=== PATIENT | female | born 1995 | race Caucasian/White ===

== ENCOUNTER 2019-05-05 16:55 | Emergency (ER) | payer MEDICAID ==
--- NOTE | 2019-05-05 17:28 | ER Document Report ---
ED Medical Screen (RME) - General Chief Complaint: Abdominal Pain Stated Complaint: ABDOMINAL PAIN Time Seen by Provider: 05/05/19 17:24 Primary Care Provider: SEE CRUMP MD [Primary Care Provider] - Follow up as needed Mode of Arrival: Ambulatory Information source: Patient Notes: 23-year-old female presented to ED for complaint of pelvic pain and vaginal bleeding. She states that her last menstrual cycle started on March 30. She states Friday she realized that she was late and so she took a test. She states it was positive. Today she started with some pelvic cramping and vaginal bleeding about 2 PM. She states she is still on her same pantiliner since 2 PM but started getting a little heavier. She states she came to the emergency room to find out what was going on because she is bleeding. She is 1 para 0. She has no past medical or surgical history. She does not smoke occasionally drinks and does not do drugs. 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 I have greeted and performed a rapid initial assessment of this patient. A comprehensive ED assessment and evaluation of the patient, analysis of test results and completion of medical decision making process will be conducted by an additional ED providers. - Related Data Allergies/Adverse Reactions: No Known Allergies Allergy (Verified 05/05/19 17:21) Past Medical History - Immunizations Immunizations up to date: Yes Hx Diphtheria, Pertussis, Tetanus Vaccination: Yes Physical Exam - Vital signs Vitals: Temp Pulse Resp BP Pulse Ox 98.1 F 94 16 142/86 H 100 05/05/19 17:01 05/05/19 17:01 05/05/19 17:01 05/05/19 17:01 05/05/19 17:01 Course - Vital Signs Vital signs: Temp Pulse Resp BP Pulse Ox 98.1 F 94 16 142/86 H 100 05/05/19 17:01 05/05/19 17:01 05/05/19 17:01 05/05/19 17:01 05/05/19 17:01 Doctor's Discharge - Discharge Referrals: SEE CRUMP MD [Primary Care Provider] - Follow up as needed
[2019-05-05 18:53] LABS: ABSOLUTE BASOPHILS # (AUTO) 0.1 10^3/uL (0.0-0.2); ABSOLUTE EOSINOPHILS # (AUTO) 0.1 10^3/uL (0.0-0.6); ABSOLUTE LYMPHOCYTES (AUTO) 2.4 10^3/uL (0.5-4.7); ABSOLUTE MONOCYTES (AUTO) 0.6 10^3/uL (0.1-1.4); ABSOLUTE NEUT (AUTO) 7.2 10^3/uL (1.7-8.2); BASOPHILS % (AUTO) 0.6 % (0-2); EOSINOPHILS % (AUTO) 1.2 % (0-6); HEMATOCRIT 40.5 % (36.0-47.0); HEMOGLOBIN 13.8 g/dL (12.0-15.5); LYMPHOCYTES % (AUTO) 23.5 % (13-45); MEAN CORPUSCULAR HEMOGLOBIN 31.4 pg (27.0-33.4); MEAN CORPUSCULAR HGB CONC 34.1 g/dL (32.0-36.0); MEAN CORPUSCULAR VOLUME 92 fl (80-97); MONOCYTES % (AUTO) 5.9 % (3-13); PLATELET COUNT 315 10^3/uL (150-450); RED BLOOD COUNT 4.41 10^6/uL (3.72-5.28); RED CELL DISTRIBUTION WIDTH 12.7 % (11.5-14.0); SEGMENTED NEUTROPHILS % (AUTO) 68.8 % (42-78); TOTAL CELLS COUNTED % (AUTO) 100 %; WHITE BLOOD COUNT 10.4 10^3/uL (4.0-10.5)
[2019-05-05 19:00] LABS: APPEARANCE,URINE SLIGHTLY-CLOUDY; BILIRUBIN,URINE NEGATIVE (NEGATIVE); COLOR,URINE YELLOW; GLUCOSE, URINE NEGATIVE (NEGATIVE); KETONES,URINE NEGATIVE (NEGATIVE); LEUKOCYTE ESTERASE,URINE NEGATIVE (NEGATIVE); NITRITE,URINE NEGATIVE (NEGATIVE); PROTEIN,URINE NEGATIVE (NEGATIVE); URINE SPECIFIC GRAVITY 1.013; UROBILINOGEN,URINE NEGATIVE mg/dL (<2.0)
[2019-05-05 19:14] LABS: ALBUMIN 4.5 g/dL (3.5-5.0); ALKALINE PHOSPHATASE 49 U/L (38-126); ANION GAP 8 (5-19); ASPARTATE AMINO TRANSFERASE 20 U/L (14-36); BILIRUBIN,DIRECT 0.1 mg/dL (0.0-0.4); BILIRUBIN,TOTAL 0.6 mg/dL (0.2-1.3); BLOOD UREA NITROGEN 10 mg/dL (7-20); CALCIUM 9.5 mg/dL (8.4-10.2); CARBON DIOXIDE 28 mmol/L (22-30); CHLORIDE 104 mmol/L (98-107); GLUCOSE 81 mg/dL (75-110); POTASSIUM 4.6 mmol/L (3.6-5.0); TOTAL PROTEIN 7.8 g/dL (6.3-8.2)
--- NOTE | 2019-05-05 19:20 | ER Document Report ---
ED GI/ - General Chief Complaint: Abdominal Pain Stated Complaint: ABDOMINAL PAIN Time Seen by Provider: 05/05/19 17:24 Primary Care Provider: SEE CRUMP MD [EMERITUS] - Follow up as needed Mode of Arrival: Ambulatory Notes: Patient is a 23-year-old G1, P0 who presents to the emergency department with a chief complaint of vaginal bleeding. Patient reports her last menstrual cycle was March 30. Patient reports she did have some vaginal spotting this past Friday. Patient reports that did improve and then returned earlier today. Patient reports it was a little bit heavier which did bring her concern. Patient states that it is not as heavy as a menstrual cycle. Patient reports she did take 3 home test which were positive. Patient denies blood clots. Patient denies urinary symptoms. Patient denies nausea, vomiting or diarrhea. Patient reports she is having some lower abdominal cramping. Patient denies any fever. Patient does not have an MANAGER RN CASE. TRAVEL OUTSIDE OF THE [place] IN LAST 30 DAYS: No - Related Data Allergies/Adverse Reactions: No Known Allergies Allergy (Verified 05/05/19 17:21) Past Medical History - General Information source: Patient - Social History Smoking Status: Never Smoker Chew tobacco use (# tins/day): No Frequency of alcohol use: Occasional Drug Abuse: None Lives with: Spouse/Significant other Family History: None Patient has suicidal ideation: No Patient has homicidal ideation: No - Past Medical History Cardiac Medical History: Reports: None Pulmonary Medical History: Reports: None EENT Medical History: Reports: None Neurological Medical History: Reports: None Endocrine Medical History: Reports: None Renal/ Medical History: Reports: None Malignancy Medical History: Reports: None GI Medical History: Reports: None Musculoskeletal Medical History: Reports None Skin Medical History: Reports None Psychiatric Medical History: Reports: None Traumatic Medical History: Reports: None Infectious Medical History: Reports: None Surgical Hx: Negative - Immunizations Immunizations up to date: Yes Hx Diphtheria, Pertussis, Tetanus Vaccination: Yes Review of Systems - Review of Systems Constitutional: No symptoms reported EENT: No symptoms reported Cardiovascular: No symptoms reported Respiratory: No symptoms reported Gastrointestinal: See HPI Genitourinary: No symptoms reported Female Genitourinary: See HPI Musculoskeletal: No symptoms reported Skin: No symptoms reported Hematologic/Lymphatic: No symptoms reported Neurological/Psychological: No symptoms reported Physical Exam - Vital signs Vitals: Temp Pulse Resp BP Pulse Ox 98.1 F 94 16 142/86 H 100 05/05/19 17:01 05/05/19 17:01 05/05/19 17:01 05/05/19 17:01 05/05/19 17:01 Interpretation: Normal - Notes Notes: GENERAL: Well-appearing, well-nourished and in no acute distress. HEAD: Atraumatic, normocephalic. EYES: Pupils equal round and reactive to light, extraocular movements intact, sclera anicteric, conjunctiva are normal. ENT: Nares patent, oropharynx clear without exudates. Moist mucous membranes. NECK: Normal range of motion, supple without lymphadenopathy or JVD. LUNGS: Breath sounds clear to auscultation bilaterally and equal. No wheezes rales or rhonchi. HEART: Regular rate and rhythm without murmurs, rubs or gallops. ABDOMEN: Soft, nontender, normoactive bowel sounds. No guarding, no rebound. No masses appreciated. BACK: No cervical, thoracic, lumbar midline tenderness. No saddle anesthesia, normal distal neurovascular exam. GENITOURINARY: Deferred. EXTREMITIES: Normal range of motion, no pitting or edema. No clubbing or cyanosis. NEUROLOGICAL: Cranial nerves II through XII grossly intact. Normal speech, normal gait. PSYCH: Normal mood, normal affect. SKIN: Warm, Dry, normal turgor, no rashes or lesions noted. Course - Re-evaluation Re-evalutation: 05/05/19 20:41 Patient's beta quant is 10.43. I did inform the patient that her test is positive but there is no intrauterine . I did inform her that typically with a blood level this low nothing would show up in the uterus. I did inform her I would like her to follow-up in the outpatient lab in 48 to 72 hours to have a repeat quant drawn. Patient given strict return precautions. Patient was given a lab slip. - Vital Signs Vital signs: Temp Pulse Resp BP Pulse Ox 98.1 F 94 16 142/86 H 100 05/05/19 17:01 05/05/19 17:01 05/05/19 17:01 05/05/19 17:01 05/05/19 17:01 - Laboratory Result Diagrams: 05/05/19 18:35 05/05/19 18:35 Laboratory results interpreted by me: 05/05/19 05/05/19 18:35 18:35 Beta HCG, Quant 10.43 H Urine Blood LARGE H 05/05/19 20:15 Laboratory 05/05/19 05/05/19 05/05/19 18:35 18:35 18:35 WBC 10.4 RBC 4.41 Hgb 13.8 Hct 40.5 MCV 92 MCH 31.4 MCHC 34.1 RDW 12.7 Plt Count 315 Lymph % (Auto) 23.5 Labette % (Auto) 5.9 Eos % (Auto) 1.2 Baso % (Auto) 0.6 Absolute Neuts (auto) 7.2 Absolute Lymphs (auto) 2.4 Absolute Monos (auto) 0.6 Absolute Eos (auto) 0.1 Absolute Basos (auto) 0.1 Seg Neutrophils % 68.8 Sodium 140.2 Potassium 4.6 Chloride 104 Carbon Dioxide 28 Anion Gap 8 BUN 10 Creatinine 0.65 Est GFR ( Amer) > 60 Est GFR (MDRD) Non-Af > 60 Glucose 81 Calcium 9.5 Total Bilirubin 0.6 Direct Bilirubin 0.1 Neonat Total Bilirubin Not Reportable Neonat Direct Bilirubin Not Reportable Neonat Indirect Bili Not Reportable AST 20 ALT 12 Alkaline Phosphatase 49 Total Protein 7.8 Albumin 4.5 Beta HCG, Quant 10.43 H Total Beta HCG POSITIVE Urine Color Urine Appearance Urine pH Ur Specific [place] Urine Protein Urine Glucose (UA) Urine Ketones Urine Blood Urine Nitrite Urine Bilirubin Urine Urobilinogen Ur Leukocyte Esterase Urine WBC (Auto) Urine RBC (Auto) U Hyaline Cast (Auto) Squamous Epi Cells Auto Urine Mucus (Auto) Urine Ascorbic Acid Blood Type A POSITIVE Rhogam Indicated RHOGAM NOT INDICATED 05/05/19 18:35 WBC RBC Hgb Hct MCV MCH MCHC RDW Plt Count Lymph % (Auto) [place] % (Auto) Eos % (Auto) Baso % (Auto) Absolute Neuts (auto) Absolute Lymphs (auto) Absolute Monos (auto) Absolute Eos (auto) Absolute Basos (auto) Seg Neutrophils % Sodium Potassium Chloride Carbon Dioxide Anion Gap BUN Creatinine Est GFR ( Amer) Est GFR (MDRD) Non-Af Glucose Calcium Total Bilirubin Direct Bilirubin Neonat Total Bilirubin Neonat Direct Bilirubin Neonat Indirect Bili AST ALT Alkaline Phosphatase Total Protein Albumin Beta HCG, Quant Total Beta HCG Urine Color YELLOW Urine Appearance SLIGHTLY-CLOUDY Urine pH 6.0 Ur Specific [place] 1.013 Urine Protein NEGATIVE Urine Glucose (UA) NEGATIVE Urine Ketones NEGATIVE Urine Blood LARGE H Urine Nitrite NEGATIVE Urine Bilirubin NEGATIVE Urine Urobilinogen NEGATIVE Ur Leukocyte Esterase NEGATIVE Urine WBC (Auto) 1 Urine RBC (Auto) 114 U Hyaline Cast (Auto) 1 Squamous Epi Cells Auto 1 Urine Mucus (Auto) RARE Urine Ascorbic Acid NEGATIVE Blood Type Rhogam Indicated - Diagnostic Test Radiology reviewed: Reports reviewed Radiology results interpreted by me: 05/05/19 20:15 Obstetrics Ultrasound 05/05/19 17:24 IMPRESSION: There is no intrauterine gestation at this time. Follow-up as clinically indicated. Discharge - Discharge Clinical Impression: Threatened miscarriage in early , Vaginal bleeding Condition: Stable Disposition: HOME, SELF-CARE Additional Instructions: Today you are seen the emergency department for vaginal bleeding. Your lab work does show that you but that this is very early. Your hCG quant level was 10.43 You do need to return in 48 to 72 hours to have your blood drawn. You can return to the front of the hospital; and go to the lab to have this drawn. I have attached a telephone number [phone] or [phone] that you can call if you hours after your blood test to get the results. At this point you are . Please start a vitamin. Do not take ibuprofen. If you are in pain only take Tylenol. Do not smoke or drink alcohol. Please return to the emergency department if you develop severe abdominal pain, severe vaginal bleeding, fever or any worsening signs or symptoms. : You are . care is best started as early in as possible. If you're unsure about continuing this , you should discuss this with your physician or with portable saw[facility] at [facility]. You should take only medications approved by your physician. Acetaminophen can safely be taken for minor pains. As a rule, medication for chronic conditions such as asthma or seizures can safely be continued. You should discuss with the physician every medicine you take. Any regular exercise program can be continued. Talk to your physician, however, before engaging in competitive or demanding sports. Alcohol, smoking, and "street drugs" are dangerous to your baby. Cocaine is especially dangerous. Don't use any illicit drugs! BLEEDING DURING EARLY : You have been evaluated for passing blood while . While we take this symptom very seriously, most women with your degree of bleeding will go on to have a perfectly normal baby. At this time, there is no indication that a miscarriage will occur. (A miscarriage occurs when the fetus is abnormal. There is no medicine or treatment to prevent it.) A more serious cause of bleeding is tubal (or ectopic) . An ultrasound usually can show whether the is in the uterus or in the tube. Sometimes in early , no fetus is seen. In this case, careful follow-up, including repeat blood tests and repeat ultrasound, is necessary. Do not douche or have sex for at least a week, or until OK'd by the doctor. Don't use tampons. Call the doctor or return for re-examination if there is an increase in bleeding or cramping, extreme weakness, fainting, new abdominal pain, fever, or passage of tissue. THREATENED MISCARRIAGE: You have been evaluated for a possible miscarriage. At this time, there is no indication that a miscarriage will occur. Most women with your symptoms wi ll go on to have a perfectly normal baby. However, careful observation will be necessary. A miscarriage occurs when the fetus is abnormal. There is no medicine or treatment for it. You should rest in bed until the symptoms have resolved. Do not douche or have sex for at least a week, or until OK'd by the doctor. Call the doctor or return for re-examination if there is an increase in bleeding or cramping, or passage of tissue. REPEAT BLOOD TEST: At this time, it is uncertain if you have a viable . During the first three months of , the hormone produced from the placenta will steadily rise, usually doubling in value every 2 - 3 days. In or kirsty to determine if your is viable and likely be succesful, a repeat of this blood test for the hormone is recommended in 2 - 3 days. An order for this test to be done as an outpatient is being provided. After you have this repeat test done, call your doctor or call us for the results. If the value of the test is increasing as would be expected in a normal , then your is likely to be ok. However, if the value of the test is declining, it will suggest something has happened with your and it will not likely be a successful . FOLLOW-UP CARE: If you have been referred to a physician for follow-up care, call the physicians office for an appointment as you were instructed or within the next two days. If you experience worsening or a significant change in your symptoms (very heavy bleeding with large clots of blood, passage of tissue, more severe abdominal / pelvic pain or cramping, feeling faint or severe weakness, fever, etc.), notify the physician immediately or return to the Emergency Department at any time for re-evaluation. OBSTETRIC-GYNECOLOGIC (OB-LABORER [employer] [employer]) PHYSICIANS IN [place]: [facility] [address], [place] [phone] [facility] [address], [place] [phone] For active duty and dependents diagnosed with a threatened or miscarriage, you should follow up in the following manner: Standard patients who have a local civilian provider should follow up with that provider. Patients of the Family Practice Clinic should call your Team Nurse at 8:00 am the following morning for further instructions. If you are neither a Standard patient nor a patient of the Family Practice Clinic, you should follow up at the [facility] ([facility]). Patients already enrolled in the [facility] OB Clinic, Prime patients not assigned to the Family Practice Clinic, and Active Duty patients not assigned to Family Practice Clinic should report to the [facility] Lab at 8:00 am the next mornin g that the [facility] OB Clinic is open and then you will be seen in the OB Clinic at 11:00 am. Forms: Follow-Up Laboratory Testing Referrals: SEE CRUMP MD [EMERITUS] - Follow up as needed
--- NOTE | 2019-05-05 19:52 | RADIOLOGY REPORT (SQ) ---
EXAM DESCRIPTION: U/S OB TRANSVAGINAL W/O DOP COMPLETED DATE/TIME: 05/05/2019 7:38 pm REASON FOR STUDY: Early with vaginal bleeding and pain COMPARISON: None. TECHNIQUE: Transvaginal static and realtime grayscale images acquired of the pelvis. Additional elise cted spectral and color Doppler images recorded. All images stored on PACs. bHCG: Not available. CLINICAL DATES: LMP 03/30/2019. 5 weeks 1 day. LIMITATIONS: None. FINDINGS: There is no intrauterine gestation at this time. UTERUS: No masses. No anomalies. CERVICAL LENGTH: 1.4 cm. Closed. RIGHT ADNEXA: Normal ovary with normal vascular flow. 2.1 x 1.7 x 2.6 cm. No adnexal free fluid. No adnexal masses. LEFT ADNEXA: Normal ovary with normal vascular flow. 1.9 x 2.6 x 3 cm. No adnexal free fluid. No adnexal masses. FREE FLUID: None. OTHER: No other significant finding. IMPRESSION: There is no intrauterine gestation at this time. Follow-up as clinically indicated. TECHNICAL DOCUMENTATION: JOB ID: [id number] [employer]- All Rights Reserved rev-12/19 Reading location - IP/workstation name: [email or web address]
[2019-05-05 21:03] VITALS: BP 124/69
== END 2019-05-05 21:03 | disposition home or self-care (01) ==
LOC: ER 16:55
DX: O20.0 Threatened abortion (principal); O26.891 Other specified pregnancy related conditions, first trimester; R10.30 Lower abdominal pain, unspecified; Z3A.01 Less than 8 weeks gestation of pregnancy
CPT/HCPCS: 36415; 76817; 80053; 81001; 84702; 85025; 86900; 86901; 99284

== ENCOUNTER → 2019-05-07 | Outpatient (CLI) | payer SELFPAY | LOC: OD 12:38 | PROVIDERS: ATTEND Nurse Practitioner Family | DX: O20.0 Threatened abortion (principal) | CPT/HCPCS: 36415; 84702 ==

== ENCOUNTER 2020-04-28 08:28 | Outpatient (CLI) | payer OTHER ==
[2020-04-28 09:19] LABS: APPEARANCE,URINE CLEAR; BILIRUBIN,URINE NEGATIVE (NEGATIVE); COLOR,URINE STRAW; GLUCOSE, URINE NEGATIVE (NEGATIVE); KETONES,URINE NEGATIVE (NEGATIVE); LEUKOCYTE ESTERASE,URINE MODERATE (NEGATIVE); NITRITE,URINE NEGATIVE (NEGATIVE); PROTEIN,URINE NEGATIVE (NEGATIVE); URINE SPECIFIC GRAVITY 1.008; UROBILINOGEN,URINE NEGATIVE mg/dL (<2.0)
--- NOTE | 2020-04-28 09:31 | Non Stress Test Report ---
Non Stress Test Datetime Report Generated by CPN: 04/28/2020 09:30 DEMOGRAPHIC EGA NST: 39.0 INDICATION Indication for Study (NST) Other: LC VITAL SIGNS Temperature - NST: 98.4 Pulse - NST: 77 RESP - NST: 18 NBPSYS NST: 122 NBPDIA NST: 80 MONITORING Monitor Explained: Monitor Explained; Test Explained; Patient Verbalized Understanding Time on Monitor: 04/28/2020 08:42 Time off Monitor: 04/28/2020 09:29 NST Duration: 47 NST INTERVENTIONS NST Interventions: PO Hydration; Reposition Patient Physician Notified NST: A Deleon CNM BABY A: [id number] BABY A Movement : Present Contraction Frequency : 2-4 FHR Baseline : 120 Accelerations : 15X15 Decelerations : None Variability : Moderate 6-25bpm NST Review: Meets Criteria for Reactive NST NST Review and Verified By : Aretha NST Results: Reactive NST REPORT Report Trigger: Send Report
[2020-04-28 09:36] LABS: URINE AMPHETAMINES SCREEN NEGATIVE; URINE BARBITURATES SCREEN NEGATIVE; URINE BENZODIAZEPINES SCREEN NEGATIVE; URINE COCAINE SCREEN NEGATIVE; URINE MARIJUANA (THC) SCREEN NEGATIVE; URINE METHADONE SCREEN NEGATIVE; URINE PHENCYCLIDINE SCREEN NEGATIVE
== END 2020-04-28 09:39 | disposition home or self-care (01) ==
LOC: LC 08:28
PROVIDERS: ATTEND Obstetrics & Gynecology Gynecology
DX: O47.1 False labor at or after 37 completed weeks of gestation (principal); Z3A.39 39 weeks gestation of pregnancy
CPT/HCPCS: 59025; 80307; 81005

== ENCOUNTER 2020-05-10 00:31 | Inpatient (IN) | payer OTHER ==
[2020-05-10] MEDS ORDERED: RINGERS SOLUTION,LACTATED 1,000 ML IV PRN (00:57)
[2020-05-10] MEDS ORDERED: OXYTOCIN 10 UNIT/ML VIAL ONE (01:14)
[2020-05-10] MEDS ORDERED: PENICILLIN G-K 5 MILLION UNIT VIAL ONE ×2 (01:14→05:38)
[2020-05-10] MEDS ORDERED: LIDOCAINE 1% INJ-PF (10 MG/ML) 30 ML SDV ONE (01:14)
[2020-05-10] MEDS ORDERED: MISOPROSTOL 0.2 MG TABLET ONE (01:14)
[2020-05-10] MEDS ORDERED: OXYTOCIN/0.9 % SODIUM CHLORIDE 30 UNIT/500 ML RTUINJ ONE (01:14)
[2020-05-10 01:27] LABS: APPEARANCE,URINE CLOUDY; BILIRUBIN,URINE NEGATIVE (NEGATIVE); COLOR,URINE YELLOW; GLUCOSE, URINE NEGATIVE (NEGATIVE); KETONES,URINE NEGATIVE (NEGATIVE); LEUKOCYTE ESTERASE,URINE LARGE (NEGATIVE); NITRITE,URINE NEGATIVE (NEGATIVE); PROTEIN,URINE 30 mg/dL (NEGATIVE); URINE SPECIFIC GRAVITY 1.009; UROBILINOGEN,URINE NEGATIVE mg/dL (<2.0)
[2020-05-10 01:27] LABS: ABSOLUTE EOSINOPHILS # (AUTO) 0.1 10^3/uL (0.0-0.6); ABSOLUTE LYMPHOCYTES (AUTO) 2.2 10^3/uL (0.5-4.7); ABSOLUTE MONOCYTES (AUTO) 0.6 10^3/uL (0.1-1.4); ABSOLUTE NEUT (AUTO) 6.7 10^3/uL (1.7-8.2); BASOPHILS % (AUTO) 0.3 % (0-2); EOSINOPHILS % (AUTO) 0.7 % (0-6); HEMATOCRIT 31.4 % (36.0-47.0); LYMPHOCYTES % (AUTO) 22.8 % (13-45); MEAN CORPUSCULAR VOLUME 86 fl (80-97); MONOCYTES % (AUTO) 6.2 % (3-13); PLATELET COUNT 237 10^3/uL (150-450); RED BLOOD COUNT 3.66 10^6/uL (3.72-5.28); RED CELL DISTRIBUTION WIDTH 13.6 % (11.5-14.0); TOTAL CELLS COUNTED % (AUTO) 100 %; WHITE BLOOD COUNT 9.5 10^3/uL (4.0-10.5)
[2020-05-10] MEDS ORDERED: RINGERS SOLUTION,LACTATED 1,000 ML IV ONE (01:30)
[2020-05-10] MEDS ORDERED: PENICILLIN G POTASSIUM 5,000,000 UNIT in DEXTROSE 5%-WATER 100 ML IV ONE (02:00)
[2020-05-10 02:09] LABS: URINE AMPHETAMINES SCREEN NEGATIVE; URINE BARBITURATES SCREEN NEGATIVE; URINE BENZODIAZEPINES SCREEN NEGATIVE; URINE COCAINE SCREEN NEGATIVE; URINE MARIJUANA (THC) SCREEN NEGATIVE; URINE METHADONE SCREEN NEGATIVE; URINE PHENCYCLIDINE SCREEN NEGATIVE
[2020-05-10] MEDS ORDERED: OXYTOCIN/0.9 % SODIUM CHLORIDE 30 UNIT/500 ML RTUINJ IV PRN ×2 (04:36→11:29)
[2020-05-10] MEDS ORDERED: PROMETHAZINE HCL INJ 25 MG/1 ML VIAL IV ONE (04:37)
[2020-05-10] MEDS ORDERED: NALBUPHINE HCL INJ 10 MG/1 ML AMPULE INJ ONE (04:37)
[2020-05-10] MEDS ORDERED: NALBUPHINE HCL INJ 10 MG/1 ML AMPULE ONE (04:39)
[2020-05-10] MEDS ORDERED: PROMETHAZINE HCL INJ 25 MG/1 ML VIAL ONE (04:39)
[2020-05-10] MEDS: PENICILLIN G POTASSIUM 2,500,000 UNIT in DEXTROSE 5%-WATER 50 ML IV SCH ×2 (05:44→11:49)
[2020-05-10] MEDS ORDERED: FENTANYL/BUPIVACAINE/NS/PF 300 MCG/150 ML RTUINJ EPI ONE (06:47)
[2020-05-10] MEDS ORDERED: ROPIVACAINE HCL 0.2% INJ/PF (2 MG/ML) 20 ML SDV ONE (06:47)
[2020-05-10] MEDS ORDERED: EPHEDRINE SULFATE INJ 50 MG/1 ML AMPULE ONE (06:47)
--- NOTE | 2020-05-10 07:29 | Admission Physical ---
Datetime Report Generated by CPN: 05/10/2020 07:29 CURRENT ADMISSION Chief Complaint: Uterine Contractions Indication for Induction: Not Applicable Admit Impression : Term, Intrauterine Admit Plan: Admit to Unit; Initiate Labor Protocol ALLERGIES Medication Allergies: No Medication Allergies: No Known Allergies (04/28/2020) Latex: No Latex Allergies OBSTETRICAL HISTORY EDC: 05/05/2020 00:00 : 2 Para: 0 Term: 0 : 0 SAB: 0 IAB: 1 Ectopic: 0 Livin Cesareans: 0 VBACs: 0 Multiple Births: 0 Gestational Diabetes: No Rh Sensitization: No Incompetent Cervix: No JOSIAH: No Infertility: No ART Treatment: No Uterine Anomaly: No IUGR: No Hx Previous C/S: No Macrosomia: No Hx Loss/Stillborn: No PIH: No Hx : No Placenta Previa/Abruption: No Depression/PP Depression: No PTL/PROM: No Post Hemorrhage: No Current Procedures: Ultrasound Obstetrical History Comments: SAB G2- Current SEE RECORDS Alcohol: No Marijuana : No Cocaine: No Other Illicit Drugs: No Cigarettes: Never Smoker. [id number] MEDICAL HISTORY Diabetes: No Blood Transfusion: No Pulmonary Disease (Asthma, TB): No Breast Disease: No Hypertension: No Ct Scan Special Procedures Technologist Surgery: No Heart Disease: No Hosp/Surgery: No Autoimmune Disorder: No Anesthetic Complications: No Kidney Disease: No Abnormal Pap Smear: No Neuro/Epilepsy: No Psychiatric Disorders: No Other Medical Diseases: No Hepatitis/Liver Disease: No Significant Family History: No Varicosities/Phlebitis: No Trauma/Violence : No Thyroid Dysfunction: No Medical History Comments: Asthma as a child INFECTIOUS HISTORY Gonorrhea: No Genital Herpes: No Chlamydia: No Tuberculosis: No Syphilis: No Hepatitis: No HIV/AIDS Exposure: No Rash or Viral Illness: No HPV: No PHYSICAL EXAM General: Normal HEENT: Normal Neurologic: Normal Thyroid: Normal Heart: Normal Lungs: Normal Breast: Deferred Back: Normal Abdomen: Normal Genitourinary Exam: Normal Extremities: Normal DTRs: Normal Pelvic Type: Adequate FETUS A EGA: 40.5 PLANS FOR LABOR AND DELIVERY Labor and Delivery: None Pain Management: None Feeding Preference: Breast Benefit of Breast Feed Discussed: Yes Circumcision: Yes INFORMED CONSENT Signature: with User ID: [email or web address]
--- NOTE | 2020-05-10 08:33 | L&D Progress Notes ---
PROGRESS NOTES Datetime Report Generated by CPN: 05/10/2020 08:32 PROGRESS NOTE Impression: Normal Progression of Labor Procedures: Artificial ROM Plan: Continue Present Management; Anticipate Vaginal Delivery Comment: Assuming care of patient Pt presented last night w/ complaints of SROM. +meconium. +GBS. Epidural placed. VE 8 cm per her RN. Attending MD is Dr Maki, anticipate LAST VAGINAL EXAM-NURSING Nursing Exam Dilitation: 8.0 Nursing Exam Effacement: 80 Nursing Exam Station: -1 Nursing Exam Contractions: positioned for epidural, toco adjusted MEMBRANES Membranes: Ruptured Amniotic Fluid Color: Meconium, Light FETUS A Monitoring: External US FHR Category: Category I SIGNATURE SIGNATURE: [id number];[id number] Assignment: Telma Maki MD Signature: with User ID: [email or web address] : with User ID: [email or web address]
--- NOTE | 2020-05-10 08:37 | Admission Physical ---
Datetime Report Generated by CPN: 05/10/2020 08:37 CURRENT ADMISSION Chief Complaint: Suspected Ruptured Membranes Indication for Induction: Not Applicable Admit Impression : Term, Intrauterine Admit Plan: Admit to Unit ALLERGIES Medication Allergies: No Medication Allergies: No Known Allergies (04/28/2020) Latex: No Latex Allergies OBSTETRICAL HISTORY EDC: 05/05/2020 00:00 : 2 Para: 0 Term: 0 : 0 SAB: 0 IAB: 1 Ectopic: 0 Livin Cesareans: 0 VBACs: 0 Multiple Births: 0 Gestational Diabetes: No Rh Sensitization: No Incompetent Cervix: No JOSIAH: No Infertility: No ART Treatment: No Uterine Anomaly: No IUGR: No Hx Previous C/S: No Macrosomia: No Hx Loss/Stillborn: No PIH: No Hx : No Placenta Previa/Abruption: No Depression/PP Depression: No PTL/PROM: No Post Hemorrhage: No Current Procedures: Ultrasound Obstetrical History Comments: SAB G2- Current SEE RECORDS Alcohol: No Marijuana : No Cocaine: No Other Illicit Drugs: No Cigarettes: Never Smoker. [id number] MEDICAL HISTORY Diabetes: No Blood Transfusion: No Pulmonary Disease (Asthma, TB): No Breast Disease: No Hypertension: No Bottling Attendant Surgery: No Heart Disease: No Hosp/Surgery: No Autoimmune Disorder: No Anesthetic Complications: No Kidney Disease: No Abnormal Pap Smear: No Neuro/Epilepsy: No Psychiatric Disorders: No Other Medical Diseases: No Hepatitis/Liver Disease: No Significant Family History: No Varicosities/Phlebitis: No Trauma/Violence : No Thyroid Dysfunction: No Medical History Comments: Asthma as a child INFECTIOUS HISTORY Gonorrhea: No Genital Herpes: No Chlamydia: No Tuberculosis: No Syphilis: No Hepatitis: No HIV/AIDS Exposure: No Rash or Viral Illness: No HPV: No PHYSICAL EXAM General: Normal HEENT: Normal Neurologic: Normal Thyroid: Normal Heart: Normal Lungs: Normal Breast: Deferred Back: Normal Abdomen: Normal Genitourinary Exam: Normal Extremities: Normal DTRs: Normal Pelvic Type: Adequate Vital Signs: Reviewed; Within Normal Limits MEMBRANES Membranes: Ruptured Amniotic Fluid Color: Meconium, Light FETUS A EGA: 40.5 Monitoring: External US Admit Comment: Pt presented last night w/ ROM. Attending MD was Dr Valderrama. PLANS FOR LABOR AND DELIVERY Labor and Delivery: None Pain Management: None Feeding Preference: Breast Benefit of Breast Feed Discussed: Yes Circumcision: Yes INFORMED CONSENT Assignment: Telma Maki MD Signature: with User ID: [email or web address] : with User ID: [email or web address]
--- NOTE | 2020-05-10 10:38 | Warning Signs in Babies ---
VOD Warning Signs Datetime Report Generated by [facility]: 05/10/2020 10:38 VOD#608 -Warning Signs in Babies: Needs to be viewed. (04/28/2020 08:42:Sylvia Church RN)
[2020-05-10] MEDS ORDERED: MAGNESIUM HYDROXIDE SUSP 30 ML UDCUP PO PRN (11:29)
[2020-05-10] MEDS ORDERED: BENZOCAINE/MENTHOL AEROSOL SPRAY 56 ML TOP PRN (11:29)
[2020-05-10] MEDS ORDERED: DIBUCAINE 1% OINTMENT 28 GM TP PRN (11:29)
[2020-05-10] MEDS ORDERED: PSEUDOEPHEDRINE HCL 30 MG TABLET PO PRN (11:29)
[2020-05-10] MEDS ORDERED: ACETAMINOPHEN 325 MG TABLET PO PRN (11:29)
[2020-05-10] MEDS ORDERED: PROMETHAZINE HCL 25 MG SUPP.RECT PR PRN (11:29)
[2020-05-10] MEDS ORDERED: ACETAMINOPHEN WITH CODEINE #3 TABLET PO PRN ×2 (11:29)
[2020-05-10] MEDS ORDERED: PROMETHAZINE HCL 25 MG TABLET PO PRN (11:29)
[2020-05-10] MEDS ORDERED: DIPH/PERTUSS(ACELL)/TETANUS VAC/PF 0.5 ML SYR (>=10YO) IM PRN (11:29)
[2020-05-10] MEDS ORDERED: NA PHOS,M-B/NA PHOS,DI-BA (ADULT) 133 ML ENEMA PR PRN (11:29)
[2020-05-10] MEDS ORDERED: ZOLPIDEM TARTRATE 5 MG TABLET PO PRN (11:29)
[2020-05-10] MEDS ORDERED: MEASLES,MUMPS&RUBELLA VACC/PF 0.5 ML VIAL SUBCUT PRN (11:29)
[2020-05-10] MEDS ORDERED: ACETAMINOPHEN 650 MG SUPP.RECT PR PRN (11:29)
[2020-05-10] MEDS ORDERED: DIPHENHYDRAMINE HCL 25 MG CAPSULE PO PRN (11:29)
[2020-05-10] MEDS ORDERED: GLYCERIN/WITCH HAZEL LEAF 1 EACH MED..WIPE TP PRN (11:29)
[2020-05-10] MEDS ORDERED: PROMETHAZINE HCL INJ 25 MG/1 ML VIAL IV PRN (11:29)
[2020-05-10] MEDS ORDERED: MISOPROSTOL 0.2 MG TABLET PR ONE (11:47)
--- NOTE | 2020-05-10 13:21 | Delivery Summary ---
Del Sum A-C Datetime Report Generated by CPN: 05/10/2020 13:20 DELIVERY PERSONNEL DELIVERY PERSONNEL: [id number] Delivery Doctor:: Telma Maki MD Labor and Delivery Nurse:: hSae Ledesma RNspeech pathology teacher Nurse:: Sylvia Church RN Nursery Nurse:: Jaz Estrada RN Nursery Nurse:: Heena Calvo RN [place] Drawer/SENIOR ELECTRICAL PROJECT MANAGER: Citlaly Hong ST [place] Drawer/SENIOR ELECTRICAL PROJECT MANAGER: Lulu Taylor, COMPUTER ASSISTANT MATERNAL INFORMATION Delivery Anesthesia: Epidural Medications After Delivery: Pitocin 30 Units in 500ml NS/D5W; Cytotec 800mcg Per Rectum/Vagina Delivery QBL: 100 Maternal Complications: None LABOR SUMMARY EDC: 05/05/2020 00:00 No. Babies in Womb: 1 Attempted: No Labor Anesthesia: Epidural LABOR INFORMATION Reason for Induction: Not Applicable Onset of Labor: 05/09/2020 23:45 Complete Dilatation: 05/10/2020 10:18 Oxytocin: N/A Group B Beta Strep: positive Antibiotics # of Doses: 3 Antibiotics Time of Last Dose: 05/10/2020 10:00 Name of Antibiotic Given: penicillin Steroids Given: None Reason Steroids Not Administered: Not Applicable MEMBRANES Membranes Rupture Method: Spontaneous Rupture of Membranes: 05/09/2020 23:45 Length of Rupture (hr): 10.78 Amniotic Fluid Color: Moderate Meconium Amniotic Fluid Amount: Moderate Amniotic Fluid Odor: Normal STAGES OF LABOR Stage 1 hr: 10 Stage 1 min: 33 Stage 2 hr: 0 Stage 2 min: 14 Stage 3 hr: 0 Stage 3 min: 4 Total Time in Labor hr: 10 Total Time in Labor min: 51 VAGINAL DELIVERY Episiotomy: None Laceration #1: Vaginal Laceration Extension #1: Second Degree Laceration Repair: Yes Laceration Repair Note: 2-0 chromic (Annotations: Data stored by [facility] on behalf of user) Sponge Count Correct: N/A Sharps Count Correct: N/A CSECTION DELIVERY Primary Indication: N/A Secondary Indication: N/A CSection Incidence: N/A Labor: N/A Elective: N/A CSection Incision: N/A BABY A INFORMATION Delivery Date/Time: 05/10/2020 10:32 Method of Delivery: Vaginal Nurse Controlled Delivery: No Born in Route : No : N/A Forceps: N/A Vacuum Extraction: N/A Shoulder Dystocia : No PRESENTATION/POSITION BABY A Presentation: Cephalic Cephalic Presentation: Vertex Breech Presentation: N/A PLACENTA INFORMATION BABY A Placenta Delivery Time : 05/10/2020 10:36 Placenta Method of Delivery: Spontaneous Placenta Status: Delivered SCORES BABY A Heart Rate 1 min: >100 bpm Resp Effort 1 min: Good Cry Reflex Irritability 1 min: Cough or Sneeze or Pulls Away Muscle Tone 1 min: Active Motion Color 1 min: Blue/Pale Resuscitation Effort 1 min: Tactile Stimulation SCORE 1 MIN: 8 Heart Rate 5 min: >100 bpm Resp Effort 5 min: Good Cry Reflex Irritability 5 min: Cough or Sneeze or Pulls Away Muscle Tone 5 min: Active Motion Color 5 min: Body [place], Extremities Blue Resuscitation Effort 5 min: N/A SCORE 5 MIN: 9 INFANT INFORMATION BABY A Gestational Age at Delivery: 40.5 Gestational Status: Full Term- 39- 40.6 Weeks Infant Outcome : Liveborn Condition : Stable Infant Sex: Male IDENTIFICATION BABY A Verification Date/Time: 05/10/2020 11:24 ID Band Number: [id number] Mother's Name Verified: Yes RN Verifying : ShaniMARVA isabel Additional Verifying Personnel: Eris Ledesma RN WEIGHT/LENGTH BABY A Birthweight (gm): 3157 Infant Weight (lb): 6 Infant Weight (oz): 15 Length (in): 20.00 Length (cm): 50.80 CORD INFORMATION BABY A No. Cord Vessels: 3 Nuchal Cord : Around Neck x1, Loose Cord Blood Taken: Yes-For Storage (Mom's Blood type +) Suction: Mouth ASSESSMENT BABY A Physical Findings at Delivery: Within Normal Limits Infant Respirations: Appears Normal Skin to Skin: No Skin to Skin Time (min): dad at 1038 Supervisor Parking Lot/ALS Called : No Infant Care By: bere/leslie Transferred To: Remains with Mother BABY B INFORMATION : N/A SIGNATURES Signature: with User ID: [email or web address]
--- NOTE | 2020-05-10 13:21 | Birth Certificate Data ---
Cert Data Datetime Report Generated by CPN: 05/10/2020 13:20 CERTIFICATE DATA 47a. Care: Yes (04/28/2020 08:42:Marguerite Live RN) 47b. Date of First Visit: 01/19/2020 00:00 (04/28/2020 08:42:JESSENIA Monson) 47c. Date of Last Visit: 05/08/2020 00:00 (04/28/2020 08:42:JESSENIA Monson) 47d. Number of Visits: 10 (04/28/2020 08:42:JESSENIA Monson) 48a. Number of Prev Live Births: 0 (04/28/2020 08:42:Marguerite Live RN) 48b. Now Livin (04/28/2020 08:42:Deyanira Arteaga RN) 48c. Live Births Now : 0 (04/28/2020 08:42:QS system process) 48e. Losses: 1 (04/28/2020 08:42:Marguerite Live RN) 48f. Date of Last Preg Loss: 05/12/2019 00:00 (04/28/2020 08:42:JESSENIA Monson) RISK FACTORS IN THIS 49a. Diabetes: No (04/28/2020 08:42:Marguerite Live RN) 49b. Hypertension: No (04/28/2020 08:42:Marguerite Live RN) 49c. Previous Births: 0 (04/28/2020 08:42:Deyanira Arteaga RN) 49d. Stillborns: No (04/28/2020 08:42:Marguerite Live RN) 49d. IUGR: No (04/28/2020 08:42:Marguerite Live RN) 49e. Infertility Treatment: No (04/28/2020 08:42:Marguerite Lvie RN) 49f. Previous Cesareans: 0 (04/28/2020 08:42:Marguerite Live RN) Mother's Height 50b. Height Inches: 62 (05/10/2020 08:16:QS system process) Mother's Weight 51a. Pre- Weight (lbs): 140 (04/28/2020 08:42:Marguerite Live RN) 51b. Weight at Delivery (lbs): 174 (05/10/2020 08:16:QS system process) 52. Dt Last Normal Menses Began: 07/30/2019 00:00 (04/28/2020 08:42:JESSENIA Monson) Infections Present/Treated 53a. Gonorrhea: No (04/28/2020 08:42:Marguerite Live RN) Results this Hospital Visit : Negative (04/28/2020 08:42:Mali Bravo RN) 53b. Syphilis: No (04/28/2020 08:42:Marguerite Live RN) Results this Hospital Visit: NONREACTIVE (05/10/2020 01:16:QS system process) 53c. Chlamydia: No (04/28/2020 08:42:Marguerite Live RN) Results this Hospital Visit: Negative (04/28/2020 08:42:Mali Bravo RN) 53d. Hepatitis B: No (04/28/2020 08:42:Marguerite Live RN) Results this Hospital Visit: Negative (04/28/2020 08:42:Mali Bravo RN) 53e. Hepatitis C: Negative (04/28/2020 08:42:Mali Bravo RN) 53h. Mother Tested for HBsAG: Yes (04/28/2020 08:42:Mali Bravo RN) 53i. Date Tested: 01/19/2020 00:00 (04/28/2020 08:42:Mali Bravo RN) 53j. Test Result: Negative (04/28/2020 08:42:Mali Bravo RN) Obstetric Procedures 54a, b, c. Obstetric Procedures: Ultrasound (04/28/2020 08:42:Marguerite Live RN) Cigarette Smoking Cigarette Smoking: Never Smoker. [id number] (04/28/2020 08:42:Marguerite Live RN) 55a. 3 Months Before Preg - Ci (04/28/2020 08:42:Marguerite Live RN) 55a. Packs: 0 (04/28/2020 08:42:Marguerite Live RN) 55b. 1st Trimester of Preg- Ci (04/28/2020 08:42:Marguerite Live RN) 55b. Packs: 0 (04/28/2020 08:42:Marguerite Live RN) 55c. 2nd Trimester of Preg- Ci (04/28/2020 08:42:Marguerite Live RN) 55c. Packs: 0 (04/28/2020 08:42:Marguerite Live RN) 55d. 3rd Trimester of Preg- Ci (04/28/2020 08:42:Marguerite Live RN) 55d. Packs: 0 (04/28/2020 08:42:Marguerite Live RN) Onset of Labor 56a. PROM >12 Hrs: 10.78 (05/10/2020 01:38:QS system process) 56b. Precipitous Labor <3 Hrs: 10 (04/28/2020 08:42:QS system process) 56c. Prolonged Labor > 20 Hrs: 10 (04/28/2020 08:42:QS system process) 57a. Induction of Labor: N/A (04/28/2020 08:42:Shae Ledesma RN) 57c. Non-Vertex Presentation A: Vertex (04/28/2020 08:42:Sylvia Church RN) 57d. Steroids - Lung Mat: None (04/28/2020 08:42:Marguerite Live RN) 57d. Steroids - Lung Mat: Not Applicable (04/28/2020 08:42:Marguerite Live RN) 57e. Antibiotics During Labor: 05/10/2020 10:00 (04/28/2020 08:42:Sylvia Church RN) 57g. Moderate/Heavy Meconium: Moderate Meconium (05/10/2020 01:38:Marguerite Live RN) 57h. Intolerance of Labor: N/A (04/28/2020 08:42:Sylvia Church RN) : N/A (04/28/2020 08:42:Sylvia Church RN) 57i. Epidural/Spinal Anesthesia: Epidural (04/28/2020 08:42:Sylvia Church RN) Method of Delivery 58a. Forceps - Unsuccessful A: N/A (04/28/2020 08:42:Sylvia Church RN) 58b. Vacuum - Unsuccessful A: N/A (04/28/2020 08:42:Sylvia Church RN) 58c. Presentation at 58c. Presentation at - A : Vertex (04/28/2020 08:42:Sylvia Church RN) 58c. Presentation at - A : N/A (04/28/2020 08:42:Sylvia Church RN) 58c. Presentation at - A : Cephalic (05/10/2020 00:47:Marguerite Live RN) Final Route and Method of Del 58d. Baby A Route/Delivery: Vaginal (05/10/2020 10:32:Sylvia Church RN) 58e. Trial of Labor Attempted: No (04/28/2020 08:42:Marguerite Live RN) 58e. Trial of Labor Attempted A: N/A (04/28/2020 08:42:Marguerite Live RN) 58e. Trial of Labor Attempted B: N/A (04/28/2020 08:42:Marguerite Marhefka, RN) Maternal Morbidity 59b. 3rd or 4th Degree Lacs: Vaginal (04/28/2020 08:42:Sylvia Niebuhr, RN) Birthweight Baby A: 3157 (04/28/2020 08:42:Jaz Estrada RN) 60a. Pounds : 6 (04/28/2020 08:42:QS system process) 60b. Ounces: 15 (04/28/2020 08:42:QS system process) 61. GA at Delivery Baby A: 40.5 (04/28/2020 08:42:Sylvia Church RN) : Full Term- 39- 40.6 Weeks (04/28/2020 08:42:QS system process) 62a. 5 Minute Baby A: 9 (04/28/2020 08:42:QS system process)
[2020-05-10] MEDS: IBUPROFEN 800 MG TABLET PO SCH ×2 (15:56→21:47)
[2020-05-10] MEDS: FERROUS SULFATE 325 MG TABLET PO SCH (18:49)
[2020-05-10] MEDS: DOCUSATE SODIUM 100 MG CAPSULE PO SCH (18:49)
[2020-05-10] MEDS: FAMOTIDINE 20 MG TABLET PO SCH (21:47)
[2020-05-11] MEDS: IBUPROFEN 800 MG TABLET PO SCH ×3 (05:37→22:55)
[2020-05-11 07:32] LABS: HEMATOCRIT 28.2 % (36.0-47.0); HEMOGLOBIN 9.8 g/dL (12.0-15.5); MEAN CORPUSCULAR HEMOGLOBIN 30.1 pg (27.0-33.4); MEAN CORPUSCULAR HGB CONC 34.8 g/dL (32.0-36.0); MEAN CORPUSCULAR VOLUME 86 fl (80-97); PLATELET COUNT 226 10^3/uL (150-450); RED BLOOD COUNT 3.26 10^6/uL (3.72-5.28); RED CELL DISTRIBUTION WIDTH 13.8 % (11.5-14.0); WHITE BLOOD COUNT 11.2 10^3/uL (4.0-10.5)
[2020-05-11] MEDS: DOCUSATE SODIUM 100 MG CAPSULE PO SCH ×2 (09:16→18:17)
[2020-05-11] MEDS: SENNOSIDES/DOCUSATE 8.6-50 MG 1 EACH TABLET PO SCH (09:16)
[2020-05-11] MEDS: FAMOTIDINE 20 MG TABLET PO SCH ×2 (09:16→22:55)
[2020-05-11] MEDS: PRENATAL VITAMIN W DHA CAPSULE PO SCH (09:16)
[2020-05-11] MEDS: FERROUS SULFATE 325 MG TABLET PO SCH ×2 (09:16→18:17)
--- NOTE | 2020-05-11 10:51 | PDOC PROGRESS REPORT ---
Subjective-OB Progress Note for:: 05/11/20 Physical Exam (OB) Vital Signs: Temp Pulse Resp BP Pulse Ox 97.6 F 90 17 133/81 H 100 05/11/20 10:00 05/11/20 08:22 05/11/20 08:22 05/11/20 08:22 05/11/20 08:22 Intake & Output 05/10/20 05/11/20 05/12/20 06:59 06:59 06:59 Intake Total 1850 Balance 1850 Weight 79.2 kg - PIH/Pre-Eclampsia Clonus: Negative Headache: Absent Epigastric Pain: No Visual Changes: No - Maternal Morbidity 59. Maternal Morbidity (serious complications experinced by the mother associated with labor and delivery: None of the above - Lochia Lochia Amount: Small 10-25 ml Lochia Color: Rubra/Red - Abdomen Description: Firm Hernia Present: No Bowel Sounds: Normoactive Flatus Presence: Present Stool: No Fundal Description: Firm Fundal Height: u/u - u/2 Objective-Diagnostic Laboratory: 05/11/20 06:48 05/11/20 06:48 WBC 11.2 H RBC 3.26 L Hgb 9.8 L Hct 28.2 L MCV 86 MCH 30.1 MCHC 34.8 RDW 13.8 Plt Count 226 Assessment and Plan(PN) - Time Spent with Patient Time with patient: 15-25 minutes Medications reviewed and adjusted accordingly: Yes - Disposition Anticipated Discharge Disposition: Home, Self Care Anticipated Discharge Timeframe: within 36 hours
[2020-05-12] MEDS: IBUPROFEN 800 MG TABLET PO SCH (06:36)
[2020-05-12] MEDS: FAMOTIDINE 20 MG TABLET PO SCH (09:23)
[2020-05-12] MEDS: PRENATAL VITAMIN W DHA CAPSULE PO SCH (09:23)
[2020-05-12] MEDS: SENNOSIDES/DOCUSATE 8.6-50 MG 1 EACH TABLET PO SCH (09:23)
[2020-05-12] MEDS: FERROUS SULFATE 325 MG TABLET PO SCH (09:23)
[2020-05-12] MEDS: DOCUSATE SODIUM 100 MG CAPSULE PO SCH (09:23)
--- NOTE | 2020-05-12 11:19 | PDOC DISCHARGE SUMMARY ---
Impression - Admit/DC Date/PCP Admission Date/Primary Care Provider: 05/10/20 01:06 JANNA TRAYLOR MD Discharge Date: 05/12/20 - Discharge Diagnosis (1) Delivery normal Is this a current diagnosis for this admission?: Yes (2) Depression with anxiety Is this a current diagnosis for this admission?: Yes (3) Positive GBS test Is this a current diagnosis for this admission?: Yes (4) Is this a current diagnosis for this admission?: Yes - Additional Information Resuscitation Status: Full Code Discharge Diet: Regular Discharge Activity: Balance Activity w/Rest, Pelvic Rest Referrals: JANNA TRAYLOR MD [Primary Care Provider] - Home Medications: Pnv No.103/Folic/Om3s/Fish Oil [ Gummies] 1 each PO DAILY 04/28/20 HPI Gestational Age: 40.5 Reason(s) for Admission: Onset of Labor Procedures: NST Intrapartum Procedure(s): Spontaneous Vaginal Delivery Complication(s): Laceration-Perineal Laceration-Degree: 2nd Hospital Course 59. Maternal Morbidity (serious complications experinced by the mother associated with labor and delivery: None of the above Results Laboratory Results: WBC 11.2 10^3/uL (4.0-10.5) H 05/11/20 06:48 RBC 3.26 10^6/uL (3.72-5.28) L 05/11/20 06:48 Hgb 9.8 g/dL (12.0-15.5) L 05/11/20 06:48 Hct 28.2 % (36.0-47.0) L 05/11/20 06:48 MCV 86 fl (80-97) 05/11/20 06:48 MCH 30.1 pg (27.0-33.4) 05/11/20 06:48 MCHC 34.8 g/dL (32.0-36.0) 05/11/20 06:48 RDW 13.8 % (11.5-14.0) 05/11/20 06:48 Plt Count 226 10^3/uL (150-450) 05/11/20 06:48 Lymph % (Auto) 22.8 % (13-45) 05/10/20 01:16 [place] % (Auto) 6.2 % (3-13) 05/10/20 01:16 Eos % (Auto) 0.7 % (0-6) 05/10/20 01:16 Baso % (Auto) 0.3 % (0-2) 05/10/20 01:16 Absolute Neuts (auto) 6.7 10^3/uL (1.7-8.2) 05/10/20 01:16 Absolute Lymphs (auto) 2.2 10^3/uL (0.5-4.7) 05/10/20 01:16 Absolute Monos (auto) 0.6 10^3/uL (0.1-1.4) 05/10/20 01:16 Absolute Eos (auto) 0.1 10^3/uL (0.0-0.6) 05/10/20 01:16 Absolute Basos (auto) 0.0 10^3/uL (0.0-0.2) 05/10/20 01:16 Seg Neutrophils % 70.0 % (42-78) 05/10/20 01:16 Urine Color YELLOW 05/10/20 00:38 Urine Appearance CLOUDY 05/10/20 00:38 Urine pH 7.0 (5.0-9.0) 05/10/20 00:38 Ur Specific [place] 1.009 05/10/20 00:38 Urine Protein 30 mg/dL (NEGATIVE) H 05/10/20 00:38 Urine Glucose (UA) NEGATIVE mg/dL (NEGATIVE) 05/10/20 00:38 Urine Ketones NEGATIVE mg/dL (NEGATIVE) 05/10/20 00:38 Urine Blood LARGE (NEGATIVE) H 05/10/20 00:38 Urine Nitrite NEGATIVE (NEGATIVE) 05/10/20 00:38 Urine Bilirubin NEGATIVE (NEGATIVE) 05/10/20 00:38 Urine Urobilinogen NEGATIVE mg/dL (<2.0) 05/10/20 00:38 Ur Leukocyte Esterase LARGE (NEGATIVE) H 05/10/20 00:38 Urine Ascorbic Acid NEGATIVE (NEGATIVE) 05/10/20 00:38 Urine Opiates Screen NEGATIVE 05/10/20 00:38 Urine Methadone Screen NEGATIVE 05/10/20 00:38 Ur Barbiturates Screen NEGATIVE 05/10/20 00:38 Ur Phencyclidine Scrn NEGATIVE 05/10/20 00:38 Ur Amphetamines Screen NEGATIVE 05/10/20 00:38 U Benzodiazepines Scrn NEGATIVE 05/10/20 00:38 Urine Cocaine Screen NEGATIVE 05/10/20 00:38 U Marijuana (THC) Screen NEGATIVE 05/10/20 00:38 RPR NONREACTIVE (NONREACTIVE) 05/10/20 01:16 Blood Type A POSITIVE 05/10/20 01:16 Antibody Screen NEGATIVE 05/10/20 01:16 Plan Plan of Treatment: f/u at [facility] Time Spent: Less than 30 Minutes
[2020-05-12 12:08] VITALS: BP 126/73
== END 2020-05-12 12:40 | disposition home or self-care (01) | DRG 807 ==
LOC: LC 00:31 → LR 01:06 → 2S 13:57
PROVIDERS: ADMIT Obstetrics & Gynecology; ATTEND Obstetrics & Gynecology
PROC: 10E0XZZ Delivery of Products of Conception, External Approach (ICD-10-PCS; principal; 2020-05-10)
PROC: 0KQM0ZZ Repair Perineum Muscle, Open Approach (ICD-10-PCS; 2020-05-10)
DX: O99.824 Streptococcus B carrier state complicating childbirth (principal); Z37.0 Single live birth; O70.1 Second degree perineal laceration during delivery; O77.0 Labor and delivery complicated by meconium in amniotic fluid; O69.81X0 Labor and delivery complicated by cord around neck, without compression, not applicable or unspecified; O99.344 Other mental disorders complicating childbirth; F41.8 Other specified anxiety disorders; Z3A.40 40 weeks gestation of pregnancy
CPT/HCPCS: 1967; 36415; 80307; 81005; 85025; 85027; 86592; 86850; 86900; 86901; J2300; J2540; J2550; J2590; J2795; J3010; J3490; J7060